=== PATIENT | male | born 1985 | race Caucasian/White ===

== ENCOUNTER 2025-06-03 03:17 | Day surgery (SDC) | payer BC, SELFPAY ==
[2025-05-20 15:07] VITALS: BMI 24.4
--- OUTSIDE RECORDS SUMMARY | 2025-06-03 03:19 | XMS_ITS | Clinical Summary ---
Author Organization [facility] Address [address] [place] [id number] Care Team Providers Care Commercial Property Manager Name Role Phone William Capone MD Primary Care Provider [phone] Allergies No known active allergies Medications No known medications Immunizations Immunization Administration Dates Next Due Tdap (Boostrix) 04/01/2019 Social History Tobacco Use Types Packs/Day Years Used Date Smoking Tobacco: Never Smokeless Tobacco: Never Alcohol Use Standard Drinks/Week Comments No 0 (1 standard drink = 0.6 oz pur e alcohol) AUDIT-C Answer Date Recorded Frequency of Alcohol Consumption Never 04/01/2019 Average Number of Drinks Not on file 019 Frequency of Binge Drinking Not on file 03/23 Sex and Gender Information Value Date Recorded Sex Assigned at Not on file Legal Sex Male 8:19 PM CDT Gender Identity Not on file Sexual Orientation Not on file Last Filed Vital Signs Vital Sign Reading Time Taken Comments Blood Pressure 138/83 04/01/2019 12:00 PM CDT Pulse 58 04/01/2019 12:00 PM CDT Temperature 36.6 C (97.8 F) 04/01/2019 12:00 PM CDT Respiratory Rate 18 04/01/2019 12:00 PM CDT Oxygen Saturation 99% 04/01/2019 12:00 PM CDT Inhaled Oxygen Concentration - - Weight 83.9 kg (185 lb) 04/01/2019 12:00 PM CDT Height 185.4 cm (6' 1) 04/01/2019 12:00 PM CDT Body Mass Index 24.41 04/01/2019 12:00 PM CDT Plan of Treatment Health Maintenance Due Date Last Done Comments Annual Physical 01/19/1987 Hepatitis C 01/19/2002 Hepatitis B Vaccines (1 of 3 - 19+ 3-dose series) 01/19/2003 HPV Vaccines (1 - 3-dose SCD M series) 01/19/2011 COVID-19 Vaccine ( - 2023-2 5 season) 2024 DTaP, Tdap and Td Vaccines ( 2 - Td or Tdap) 04/01/2029 04/01/2019 Meningococcal B Vaccine Aged Out No l onger eligible based on patient's age to complete this topic Meningococcal Vaccine Aged Out No renae steffanie eligible based on patient's age to complete this topic Pneumococcal Vaccine: Pediat rics (0 to 5 Years) and At-Risk Patients (6 to 49 Years) Aged Out No longer eligi ble based on patient's age to complete this topic RSV Immunizations Under 20 Months Aged Out No longer eligible based on patient's age to complete this topic Insurance Care Teams Commercial Property Manager Relationship Specialty Start Date End Date William Capone MD [address] [place] [id number] PCP - General INTERNAL MEDICINE 04/01/19
--- OUTSIDE RECORDS SUMMARY | 2025-06-03 03:19 | XMS_ITS | Clinical Summary ---
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 Gender Identity Not on file Sexual Orientation Not on file Plan of Treatment Health Maintenance Due Date Last Done Comments Hepatitis C Virus (HCV) Screening 1984 Hepatitis B Immunization (1 of 3 - 19+ 3-dose series) 01/19/2003 Human Papillomavirus (HPV) Immunization (1 - 3-dose SCDM series) 01/19/2011 SARS-COV-2 Immunization ( season) 2024 09/19/2021, 02/08/2021, 01/18/2021 Influenza Immunization (#1) 2025 Respiratory Syncytial Virus (RSV) Immunization (Adult) (1 - 1-dose 75+ series) 01/19/2059 DTaP/Tdap/Td Immunization Discontinued 04/01/2019 TdaP Immunization Completed 04/01/2019 Meningococcal Immunization (ACWY) Aged Out No longer eligible based on patient's age to complete this topic Pneumococcal Immunization Combined Aged Out No longer eligible based on patient's age to complete this topic Rotavirus Immunization Aged Out No lo nger eligible based on patient's age to complete this topic
--- NOTE | 2025-06-03 06:54 | WPDANESEPPF ---
Anes - Initial Pre Proc Eval Procedure: Operation Date: 06/03/25 09:30 Proposed Procedures p Screening Colonoscopy - Zane Faulkner MD Date/Time: 06/03/25 06:54 Surgeon: Zane Faulkner MD Pre Op Diagnosis: neoplasm screening Patient Data Age: 40 Gender: M Height: 1.85 m Weight: 84 kg Allergies Allergy/AdvReac Type Severity Reaction Status Date / Time melalueca Allergy Dermatitis Uncoded 06/03/25 08:05 Home Medications ?Medication ?Instructions ?Recorded ?Confirmed ?Type multivitamin 1 tablet PO DAILY 02/03/25 06/03/25 History sildenafil (pulm.hypertension) 20 20 mg PO .COMPLEX 02/03/25 05/20/25 History mg tablet Patient hx anesthesia problems: none Family hx anesthesia problems: none Results Review: All pre-operative results and documents have been reviewed as part of the pre-operative evaluation. [facility] Past Medical History Medical History (Updated 02/03/25 @ 14:59 by Desean Jimenez MD) Erectile disorder Family history of colon cancer in father father with colon cancer in his 50s, paternal grandfather with colon cancer. Maternal grandmother with colon cancer. Seasonal allergic rhinitis BMI 24.0-24.9, adult Excessive cerumen in both ear canals Encounter for prostate cancer screening Encounter for wellness examination in adult Surgical History Surgical History (Updated 02/21/23 @ 15:48 by Radha Lozano CMA) H/O vasectomy 2019 Family History Family History (Updated 02/21/23 @ 15:53 by Radha Lozano CMA) Father Alcoholism Cancer Grandparent Alcoholism Cancer Mother Cancer Thyroid disorder Social History Social History (Updated 02/03/25 @ 14:06 by Aundrea Landeros MA) Smoking status: Never smoker Alcohol intake: never Substance use: never Substance use type: does not use Living arrangements: with family Spiritual care concerns: No Anes - Eval Final PreProcedure Day of Procedure 06/03/25 06:54 Patient weight: normal Heart: regular rate and rhythm Lungs: clear to auscultation and normal air movement Airway: Mallampati scale class 1 Neurological: alert and oriented Last oral intake: >/= 8 hours ASA classification: I Emergent: no Anesthetic plan: proceed Anesthesia type and monitoring: general GIVS and standard monitoring Results Review: All pre-operative results and documents have been reviewed as part of the pre-operative evaluation. Informed Consent: The patient's anesthetic plan and its attendant risks and benefits were discussed with the patient/family/POA. Questions were solicited and answers provided to the satisfaction of the patient/family/POA.
[2025-06-03 08:05] VITALS: BP 134/91; PULSE 66; RESP 16; TEMP 36.6; O2SAT 100; BMI 23.1
[2025-06-03] MEDS: LACTATED RINGERS 1,000 ML 150 ML IV CONT (08:16)
--- NOTE | 2025-06-03 09:09 | PM.IMHP ---
H&P: HPI History of Present Illness Date/Time: 06/03/25 09:09 Chief Complaint: Family history of colon cancer Narrative: This patient has family history of colorectal cancer. his father had colorectal cancer at age 50. This is his 1st colonoscopy. Review of Systems Review of Systems: All systems reviewed & are unremarkable except as noted in HPI and below PMFSH Past Medical History Medical History (Updated 02/03/25 @ 14:59 by Desean Jimenez MD) Erectile disorder Family history of colon cancer in father father with colon cancer in his 50s, paternal grandfather with colon cancer. Maternal grandmother with colon cancer. Seasonal allergic rhinitis BMI 24.0-24.9, adult Excessive cerumen in both ear canals Encounter for prostate cancer screening Encounter for wellness examination in adult Surgical History Surgical History (Updated 02/21/23 @ 15:48 by Radha Lozano CMA) H/O vasectomy 2019 Family History Family History (Updated 02/21/23 @ 15:53 by Radha Lozano CMA) Father Alcoholism Cancer Grandparent Alcoholism Cancer Mother Cancer Thyroid disorder Social History Social History (Updated 02/03/25 @ 14:06 by Aundrea Landeros MA) Smoking status: Never smoker Alcohol intake: never Substance use: never Substance use type: does not use Living arrangements: with family Spiritual care concerns: No Meds Home Medications and Allergies Home Medications ?Medication ?Instructions ?Recorded ?Confirmed ?Type multivitamin 1 tablet PO DAILY 02/03/25 06/03/25 History sildenafil (pulm.hypertension) 20 20 mg PO .COMPLEX 02/03/25 05/20/25 History mg tablet Allergies Allergy/AdvReac Type Severity Reaction Status Date / Time melalueca Allergy Dermatitis Uncoded 06/03/25 08:05 Vital Signs Vital Signs - 24 hr 06/03/25 08:05 Temperature 97.8 F Pulse Rate 66 Respiratory Rate 16 Blood Pressure 134/91 H Pulse Oximetry 100 Oxygen Delivery Room Air Exam Const: General: cooperative and healthy appearing Resp: Effort & Inspection: normal respiratory effort and able to speak in complete sentences Auscultation: clear to auscultation bilaterally Cardio: Rate: regular rate Rhythm: regular rhythm GI: Inspection: normal to inspection GI Palp: No No hepatosplenomegaly present Auscultation: normal bowel sounds Rectal Exam: deferred Skin: General skin exam: normal color Psych: Appearance: grossly normal Mental Status: mental status grossly normal Assessment and Plan Assessment and plan (1) Family history of colon cancer in father: Code(s): Z80.0 - Family history of malignant neoplasm of digestive organs Status: Acute Assessment and Plan: The patient is deemed a good candidate for the procedure. Consent signed. Will proceed.
[2025-06-03 09:35] VITALS: BP 105/61; PULSE 59; RESP 17; O2SAT 100
[2025-06-03 09:45] VITALS: BP 110/62; PULSE 55; RESP 19; O2SAT 100
[2025-06-03 09:55] VITALS: BP 118/65; PULSE 58; RESP 18; O2SAT 100
== END 2025-06-03 10:15 | disposition home or self-care (01) ==
PROVIDERS: Referring Provider Family Medicine; Visit Provider Internal Medicine Gastroenterology
PROC: 0DJD8ZZ Inspection of Lower Intestinal Tract, Via Natural or Artificial Opening Endoscopic (ICD-10-PCS; CPT 45378; principal; 2025-06-03 09:30)
DX: Z12.11 Encounter for screening for malignant neoplasm of colon (principal); N52.9 Male erectile dysfunction, unspecified; Z98.890 Other specified postprocedural states; Z80.0 Family history of malignant neoplasm of digestive organs
CPT/HCPCS: 45378; J7120

== ENCOUNTER 2025-06-19 09:17 | Emergency (ER) | payer BC, SELFPAY ==
[2025-06-19 09:26] VITALS: BP 122/69; PULSE 119; RESP 18; TEMP 37.7; O2SAT 100
--- OUTSIDE RECORDS SUMMARY | 2025-06-19 09:34 | XMS_ITS | Clinical Summary ---
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
--- NOTE | 2025-06-19 10:04 | ED.URI ---
HPI - URI/Sore Throat General Chief Complaint: Upper Respiratory Infection Stated Complaint: Sore Throat Time Seen by Provider: 06/19/25 09:48 Source: patient, RN notes reviewed and old records reviewed Mode of arrival: ambulatory Limitations: no limitations History of Present Illness HPI Narrative: 40 year old male who presents to [facility] care with complaints of sore throat, productive cough for the past 2 days. He reports that he has had had body aches and chills since yesterday evening and awoke this morning with 101.6F fever. Patient reports that he as taken some Ibuprofen for his symptoms. He reports that he took home COVID test yesterday that was negative. MD elicited complaint: cough and sore throat Onset (ago): day(s) (2) Severity: moderate Able to tolerate fluids by mouth: No Treatments prior to arrival: ibuprofen Related Data Home Medications ?Medication ?Instructions ?Recorded ?Confirmed ?Last Taken ?Type multivitamin 1 tablet PO DAILY 02/03/25 06/03/25 06/02/25 History sildenafil (pulm.hypertension) 20 20 mg PO .COMPLEX 02/03/25 05/20/25 Unknown History mg tablet Allergies Allergy/AdvReac Type Severity Reaction Status Date / Time melalueca Allergy Dermatitis Uncoded 06/19/25 09:39 Review of Systems Review of Systems: CONSTITUTIONAL: Reports malaise, chills, sweats, or fever. EYES: Denies visual changes, redness, or discharge. ENT: Reports rhinorrhea, congestion,no sinus pain, no otalgia and positive for sore throat. CARDIOVASCULAR: Denies chest pain, palpitations, or edema. RESPIRATORY: Reports cough.? Denies dyspnea. GASTROINTESTINAL: Denies abdominal pain, nausea, vomiting, diarrhea SKIN: Denies rash or itching. MUSCULOSKELETAL: reports myalgia. NEUROLOGIC: Denies headache. All systems reviewed & are unremarkable except as noted in HPI and below PMFSH Past Medical History Medical History (Updated 06/19/25 @ 10:13 by Farideh Pruitt NP) Erectile disorder Family history of colon cancer in father father with colon cancer in his 50s, paternal grandfather with colon cancer. Maternal grandmother with colon cancer. Normal colonoscopy 06/03/25 with recheck in 5 years. Seasonal allergic rhinitis BMI 24.0-24.9, adult Excessive cerumen in both ear canals Encounter for prostate cancer screening Encounter for wellness examination in adult Surgical History Surgical History (Updated 02/21/23 @ 15:48 by Radha Lozano CMA) H/O vasectomy 2019 Family History Family History (Updated 02/21/23 @ 15:53 by Radha Lozano FAMILY SERVICES COORDINATOR) Father Alcoholism Cancer Grandparent Alcoholism Cancer Mother Cancer Thyroid disorder Social History Social History (Updated 02/03/25 @ 14:06 by Aundrea Landeros MA) Smoking status: Never smoker Alcohol intake: never Substance use: never Substance use type: does not use Living arrangements: with family Spiritual care concerns: No Comments At time of signature, agree with nursing past medical, surgical, social and family history. There is no relevant family history pertinent to the presenting complaint Exam Narrative: GENERAL: Well-appearing, well-nourished, and in no acute distress. HEAD: Normocephalic EYES: PERRLA, conjunctivae clear ENT: Nares clear, turbinates edematous and erythematous, clear discharge. Mucous membranes moist. TM pearly schaefr with dull light reflex bilaterally; no tragal tenderness. Oropharynx erythematous without lesions. Tonsils not enlarged and without exudate, no drooling, no hoarseness, no trismus, uvula midline. NECK: Supple. No lymphadenopathy CHEST: Clear to auscultation, breath sounds equal. No wheezing, rhonchi, rales, or stridor. No respiratory distress, speaks in full sentences.SAO2 100% on room air HEART: Regular rate and rhythm. No murmur heard. SKIN: Warm, dry, no rash. NEURO: Alert and oriented x3. PSYCH: Normal mood and affect Course Course Emergency Course: Patient is aware of diagnosis, understands and agrees to treatment plan.? Anticipatory guidance given.? Patient agrees to follow-up as directed and is aware of reasons to seek care at the emergency department. Portions of this record may have been created with voice recognition software Level of Care: Express Care Visit Vital Signs Vital signs: Vital Signs Temperature 37.7 C H 06/19/25 09:26 Pulse Rate 119 H 06/19/25 09:26 Respiratory Rate 18 06/19/25 09:26 Blood Pressure 122/69 06/19/25 09:26 Pulse Oximetry 100 06/19/25 09:26 Oxygen Delivery Room Air 06/19/25 09:26 Temperature 37.7 C H 06/19/25 09:26 Pulse Rate 119 H 06/19/25 09:26 Respiratory Rate 18 06/19/25 09:26 Blood Pressure 122/69 06/19/25 09:26 Pulse Oximetry 100 06/19/25 09:26 Oxygen Delivery Room Air 06/19/25 09:26 Reviewed MDM - URI/Sore Throat MDM Narrative Medical decision making narrative: Differential diagnosis considered: Mitchell virus, strep pharyngitis, allergic rhinitis, upper respiratory tract infection, sinusitis, rhinosinusitis, nasopharyngitis. viral pharyngitis, otitis media, otitis externa, pneumonia, bronchitis, viral cough syndrome, viral syndrome, and influenza.? Exam findings show no acute concerns or changes; patient is non-toxic appearing and is in no distress.? Patient is appropriate for outpatient treatment and follow-up. Differential Diagnosis Differential diagnosis: Likely upper respiratory infection, viral infection, influenza, pharyngitis and other (strep pharyngitis,COVID) Medical Records Attestation: I reviewed the patient's medical records. Lab Data Attestation: I reviewed the patient's lab results. Lab results narrative: COVID antigen positive, strep screen negative culture sent, Influenza A and B negative Critical Care Time Critical Care Time Critical Care Time: No Discharge Plan Discharge Clinical Impression: COVID-19 Patient Disposition: Home Condition: Stable Instructions: Antibiotic Form, How to Recover from COVID-19 at Home (ED) Additional Instructions: COVID-19 DISCHARGE The following recommendations have been made by the CDC and local Health Departments, regarding COVID-19: Those individuals with mild cases of COVID-19 can generally be discontinued from isolation, 5 days AFTER the onset of symptoms AND the resolution of fever for 24hrs (without the use of fever-reducing medications) Those individuals who were asymptomatic, and tested positive, are discontinued from isolation 10 days AFTER their first positive COVID-19 test Those individuals with SEVERE to CRITICAL illness or immunocompromised diseases may require up to 20 days of home isolation or hospitalization Majority of mild to moderate cases can be treated at home, without hospitalization or prescription medications You do not need a negative test result to return to work/school, assuming the above recommendations have been met and you are not symptomatic. At this time, return to work/school notes will not be provided. Guidelines from the local Health Department, CDC, and workplace are expected to be followed. All individuals in the household need to remained quarantined for up to 14 days if asymptomatic OR 10 days after the start of symptoms. Everyone in the home DOES NOT require testing, they are presumed positive and should quarantine as directed. Treating symptoms for mild to moderate cases may include: Tylenol, Flonase/nasal spray, OTC cold/flu medications recommended from your provider or any necessary prescription medications provided at your visit or from your PCP IF YOU TESTED NEGATIVE If you are symptomatic with reason to believe you have COVID-19, there is a high possibility your rapid test may not have detected the virus. Rapid testing is dependent on timing and viral load and may have a false-negative reading You should follow appropriate guidelines regarding quarantine, hand washing, mask wearing, and social distancing You may be sent for PCR testing as an outpatient to the [facility] site Common Adult Symptoms: Fever/chills Cough Shortness of breath Fatigue, muscle aches Headache Loss of taste/smell Sore throat, congestion, runny nose GI symptoms (nausea, vomiting, diarrhea) Common Pediatric Symptoms Cough Fever GI symptoms (diarrhea, upset stomach, nausea, vomiting) Symptoms may differ in severity however, most cases do not require hospitalization. WHEN TO SEEK ER EVALUATION/TREATMENT Severe/persistent shortness of breath or difficulty breathing Elevated, persistent fevers without resolution with fever-reducing medications Chest pain Extreme fatigue/lethargy Complications of pre-existing disease Patient Language: Finnish Prescriptions: No Action multivitamin Tablet 1 tablet PO DAILY sildenafil (pulm.hypertension) 20 mg tablet 20 mg PO .COMPLEX Patient Comments: prescribed by urologist Rx Instructions: 20 mg orally take up to 5 tablets 1 hour before intercourse as needed; administer doses at least 4-6 hours apart Follow-up/Referrals: Desean Jimenez MD [Primary Care Provider, Family Practice] Stand Alone Forms: Work/School Release IP Time of Disposition: 10:13 Quality [place] Coma Scale Eyes: Open Verbal: Oriented and Alert Motor: Follows Commands [place] Coma Total Score: 15
[2025-06-19 10:10] LABS: EDCOVIDSCREEN Positive (Negative); EDINFLUASCREEN Negative (Negative); EDINFLUBSCREEN Negative (Negative); EDSTREPNEGPOS1 Negative (Negative)
== END 2025-06-19 10:25 | disposition home or self-care (01) ==
PROVIDERS: Emergency Provider Registered Nurse; PCP Family Medicine
DX: U07.1 COVID-19 (principal)
CPT/HCPCS: 87081; 87426; 87804; 87880; 99213; G0463